=== PATIENT | female | born 1990 | race Caucasian/White ===

== ENCOUNTER 2018-10-05 16:56 | Emergency (ER) | payer OTHER ==
[~2018-10-05] VITALS: Ht 162.6 cm; Wt 86.2 kg
[2018-10-05 16:57] VITALS: BP 106/79
[2018-10-05] MEDS ORDERED: IBUPROFEN 400400 M2 PO (17:34)
== END 2018-10-05 18:00 | disposition home or self-care (01) ==
LOC: ER 16:56
DX: M25.562 Pain in left knee (principal); F17.210 Nicotine dependence, cigarettes, uncomplicated

== ENCOUNTER 2019-05-11 07:57 | Emergency (ER) | payer OTHER ==
[~2019-05-11] VITALS: Ht 162.6 cm; Wt 86.2 kg
[2019-05-11 07:57] VITALS: BP 130/81
[~2019-05-11 07:57] MED LIST: IBUPROFEN 400400 M2 PO
[2019-05-11] MEDS ORDERED: CORTISPORIN OTI10 ML OTIC (08:23)
[2019-05-11] MEDS ORDERED: NAPROSYN500 MG PO (08:23)
== END 2019-05-11 08:24 | disposition home or self-care (01) ==
LOC: ER 07:57
DX: H60.92 Unspecified otitis externa, left ear (principal); F17.210 Nicotine dependence, cigarettes, uncomplicated; Z91.040 Latex allergy status

== ENCOUNTER 2019-09-18 10:42 | Emergency (ER) | payer OTHER ==
[~2019-09-18] VITALS: Ht 170.2 cm; Wt 62.6 kg
[~2019-09-18 10:42] MED LIST changes: +CORTISPORIN OTI10 ML OTIC; +NAPROSYN500 MG PO
[2019-09-18] MEDS ORDERED: DOXYCYCLINE 10100 MG PO ×2 (12:20→12:25)
[2019-09-18] MEDS ORDERED: PROMETH-CODEIN 65 ML PO ×2 (12:20→12:25)
[2019-09-18] MEDS ORDERED: TAMIFLU75 MG PO ×2 (12:20→12:25)
[2019-09-18 13:09] VITALS: BP 125/71
== END 2019-09-18 13:11 | disposition home or self-care (01) ==
LOC: ER 10:42
DX: J10.1 Influenza due to other identified influenza virus with other respiratory manifestations (principal); J18.9 Pneumonia, unspecified organism; E16.2 Hypoglycemia, unspecified; F17.210 Nicotine dependence, cigarettes, uncomplicated; Z91.040 Latex allergy status